=== PATIENT | male | born 2000 | race Two or more races ===

== ENCOUNTER 2024-03-23 03:50 | Emergency (ER) | payer OTHER ==
[~2024-03-23] VITALS: Ht 175.3 cm; Wt 93.0 kg
[2024-03-23] MEDS ORDERED: INTUNIV1 MG (04:16)
[2024-03-23] MEDS ORDERED: FLUVOXAMINE MA100 M1 (04:16)
[2024-03-23] MEDS ORDERED: CYTOMEL25 MCG (04:16)
[2024-03-23] MEDS ORDERED: DEXAMETHASONE SODIUM PHOSPHATE 4 MG/ML VIAL IM STA (06:21)
[2024-03-23] MEDS ORDERED: KETOROLAC TROMETHAMINE 60 MG VIAL IM STA (06:21)
[2024-03-23] MEDS ORDERED: ACETAMINOPHEN 500 MG GEL..CAP PO STA (06:22)
== END 2024-03-23 06:43 | disposition home or self-care (01) ==
LOC: ER 03:51
DX: M25.562 Pain in left knee (principal); M25.561 Pain in right knee